=== PATIENT | female | born 1960 | race Caucasian/White ===

== ENCOUNTER 2023-08-12 16:07 | Outpatient (CLI) | payer OTHER | END 2023-08-12 16:15 | disposition home or self-care (01) | LOC: RAD 16:07 | PROVIDERS: ATTEND Orthopaedic Surgery | DX: M79.671 Pain in right foot (principal); M79.672 Pain in left foot; M25.511 Pain in right shoulder; M25.512 Pain in left shoulder ==

== ENCOUNTER 2023-12-28 13:22 | Outpatient (CLI) | payer OTHER | END 2023-12-28 14:13 | disposition home or self-care (01) | LOC: SONOGRAMA 13:22 | PROVIDERS: ATTEND Orthopaedic Surgery | DX: M25.511 Pain in right shoulder (principal) ==